=== PATIENT | male | born 1995 | race Caucasian/White ===

== ENCOUNTER 2018-04-19 15:50 | Emergency (ER) | payer SELFPAY ==
[~2018-04-19] VITALS: Ht 172.7 cm; Wt 90.0 kg
[2018-04-19] MEDS ORDERED: PHEN-434 PO (15:56)
[2018-04-19] MEDS ORDERED: LORA0.5T2 PO (15:56)
[2018-04-19] MEDS ORDERED: KEPPSOL GT (15:56)
[2018-04-19] MEDS ORDERED: IBUPROFEN 600MG TABLET PO STA (16:42)
[2018-04-19] MEDS ORDERED: LEVETIRACETAM 500MG/5ML CUP PO ONE (16:45)
[2018-04-19] MEDS ORDERED: IBUPROFEN 600MG TABLET PO NR (17:00)
[2018-04-19 17:17] LABS: BASOPHILS % 0.9 % (0.0-2.0); HEMATOCRIT. 43.6 % (42.0-52.0); HEMOGLOBIN. 15.3 g/dL (14.0-18.0); MEAN CORPUSCULAR HEMOGLOBIN 29.1 pg (28.0-32.0); MONOCYTES % 6.9 % (2.0-8.0); NEUTROPHILS % 68.2 % (40.0-76.0); PLATELET 344 x1000/uL (130-400); RED BLOOD CELL COUNT 5.25 mill/uL (4.7-6.1)
[2018-04-19 17:21] LABS: CHLORIDE 105 mEq/L (98-107)
[2018-04-19 17:53] VITALS: BP 124/88
[2018-04-19] MEDS ORDERED: PHENYTOIN SODIUM EXTENDED 100MG CAPSULE PO ONE (18:00)
== END 2018-04-19 18:28 | disposition home or self-care (01) ==
LOC: ER 16:20
DX: R55 Syncope and collapse (principal); R56.9 Unspecified convulsions; F41.9 Anxiety disorder, unspecified
CPT/HCPCS: 36415; 71045; 80053; 80185; 85025; 93005; 99285